=== PATIENT | male | born 1945 | race Caucasian/White ===

== ENCOUNTER 2017-05-24 10:20 | Emergency (ER) | payer MEDICARE, BC ==
[2017-05-24 11:05] VITALS: BP 117/84
--- NOTE | 2017-05-24 11:15 | UC ---
Hand/Wrist HPI - HPI Summary HPI Summary: Patient has 11 cm skin abrasion on his right hand and he has a 5 x 3 mm skin avulsion more proximal on his right hand. Patient is concerned but the skin avulsion has not scabbed over yet it also has a slight amount of erythema around it there is no drainage there is no streaking it is tender to touch - History Of Current Complaint Chief Complaint: UCLaceration Stated Complaint: RIGHT HAND COMPLAINT Time Seen by Provider: 05/24/17 11:05 Hx Obtained From: Patient Mechanism Of Injury: puncture wound from a wooden spindal Onset/Duration: Sudden Onset, Lasting Days - 2 Severity Initially: Mild Severity Currently: Mild Pain Intensity: 2 Pain Scale Used: 0-10 Numeric Character Of Pain: Aching Alleviating Factor(s): Nothing Associated Signs And Symptoms: Positive: Negative Related History: Dominant Hand Right - Allergies/Home Medications Allergies/Adverse Reactions: Allergies Allergy/AdvReac Type Severity Reaction Status Date / Time MS Iodixanol [From Visipaque] Allergy Intermediate Hives Verified 09/01/15 08:39 Home Medications: Home Medications Rivaroxaban TAB(*) [Xarelto 15 mg(*)] 15 mg PO BID 05/24/17 [History Confirmed 05/24/17] PMH/Surg Hx/FS Hx/Imm Hx Previously Healthy: No Cardiovascular History: Hypertension Psychological History: Depression Other History Of: Anticoagulant Therapy - 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 GANGLION CYST REMOVAL LEFT WRIST 1981. hemmorhoids. Right knee surgery x2 - Family History Known Family History: Positive: None - Social History Occupation: Retired Lives: With Family Alcohol Use: Daily Alcohol Amount: DAILY BEER 2 Substance Use Type: None Smoking Status (MU): Never Smoked Tobacco - Immunization History Most Recent Influenza Vaccination: Never Most Recent Tetanus Shot: 2002 Review of Systems Constitutional: Negative Skin: Other - 1 skin abrasion 1 avulsion on right hand Eyes: Negative ENT: Negative Respiratory: Negative Cardiovascular: Negative Gastrointestinal: Negative Genitourinary: Negative Motor: Negative Neurovascular: Negative Musculoskeletal: Negative Neurological: Negative Psychological: Negative Is Patient Immunocompromised?: No All Other Systems Reviewed And Are Negative: Yes Physical Exam Triage Information Reviewed: Yes Appearance: Well-Appearing, No Pain Distress, Well-Nourished Vital Signs: Initial Vital Signs Temp 98.7 F 05/24/17 10:53 Pulse 66 05/24/17 10:53 Resp 18 05/24/17 10:53 BP 117/84 05/24/17 10:53 Pulse Ox 98 05/24/17 10:53 Vital Signs Reviewed: Yes Eye Exam: Normal Eyes: Positive: Conjunctiva Clear ENT Exam: Normal ENT: Positive: Normal ENT inspection, Hearing grossly normal. Negative: Muffled voice, Hoarse voice, Dental tenderness Dental Exam: Normal Neck exam: Normal Neck: Positive: Supple, Nontender Respiratory Exam: Normal Respiratory: Positive: Chest non-tender, No respiratory distress, No accessory muscle use Cardiovascular Exam: Normal Cardiovascular: Positive: RRR, Pulses Normal, Brisk Capillary Refill Musculoskeletal Exam: Normal Musculoskeletal: Positive: Strength Intact, ROM Intact, No Edema Neurological Exam: Normal Neurological: Positive: Alert, Muscle Tone Normal Psychological Exam: Normal Skin Exam: Other Skin: Positive: Other - Skin avulsion on back of right hand with slight erythema surrounding, skin abrasion on back of right hand scant and no erythema noted Hand/Wrist Course/Dx - Course Course Of Treatment: Social water wash twice a day, warm compresses Bactroban ointment to skin avulsion follow with PCP when necessary - Differential Dx/Diagnosis Provider Diagnoses: Skin avulsion and abrasion to back of right hand Discharge - Sign-Out/Discharge Documenting (check all that apply): Discharge - Discharge Plan Condition: Stable Disposition: HOME Prescriptions: Mupirocin 2% OINT* [Bactroban 2 % Oint*] 1 applic TOPICAL BID #1 tube Patient Education Materials: Skin Avulsion (ED), Abrasion (ED) Referrals: Jennifer Reed PA [Primary Care Provider] - If Needed - Billing Disposition and Condition Condition: STABLE Disposition: HOME
== END 2017-05-24 11:25 | disposition home or self-care (01) ==
LOC: UCCORT 10:20
DX: S61.401A Unspecified open wound of right hand, initial encounter (principal); X58.XXXA Exposure to other specified factors, initial encounter; Y93.9 Activity, unspecified; Y92.9 Unspecified place or not applicable; I10 Essential (primary) hypertension
CPT/HCPCS: 99212; G0463